=== PATIENT | female | born 1955 | race African-American/Black ===

== ENCOUNTER 2018-08-21 16:19 | Observation (INO) | payer OTHER ==
[~2018-08-21] VITALS: Ht 162.6 cm; Wt 66.7 kg
[~2018-08-21 16:19] MED LIST: HYDR-3164 PO; LISI30TA4 PO
[2018-08-21 17:01] LABS: BASO % 1 % (0-3); EOS # 0.1 x10^3/uL (0.0-0.7); EOS % 2 % (0-3); HEMATOCRIT 37.6 % (36.0-47.0); HEMOGLOBIN 12.5 g/dL (12.0-15.5); LYMPH # 2.7 x10^3/uL (1.0-4.8); LYMPH % 42 % (24-48); MEAN CORPUSCULAR HEMOGLOBIN 31 pg (25-35); MEAN CORPUSCULAR HGB CONC 33 g/dL (31-37); MEAN CORPUSCULAR VOLUME 92 fL (79-100); MONO # 0.5 x10^3/uL (0.0-1.1); MONO % 7 % (0-9); NEUT # 3.1 x10^3uL (1.8-7.7); NEUT % 48 % (31-73); PLATELET COUNT 358 x10^3/uL (140-400); RED CELL DISTRIBUTION WIDTH 13.9 % (11.5-14.5); WHITE BLOOD COUNT 6.5 x10^3/uL (4.0-11.0)
--- NOTE | 2018-08-21 17:08 | PHYS DOC ---
Past Medical History Past Medical History: Hypertension Past Surgical History: Hysterectomy Alcohol Use: None Drug Use: None Adult General Chief Complaint Chief Complaint: CHEST PAIN HPI HPI Patient is a 63 year old female presents with chest pain. She states the chest pain started about one week ago and has been constant since then. It is located in left side of her chest she describes as a crampy/sharp/stabbing pain no radiation. She says everyday she takes baby aspirin to try to relieve the pain but it has not helped her. Nothing worsens or chest pain. She is also experiencing some shortness of breath with exertion. She denies any nausea, vomiting, diaphoresis, lightheadedness, unilateral leg swelling. She reports taking 4 baby aspirins today. Review of Systems Review of Systems Constitutional: Denies fever or chills Eyes: Denies redness or eye pain HENT: Denies nasal congestion or sore throat Respiratory: Denies cough or shortness of breath Cardiovascular: Reports chest pain. Denies palpitations. GI: Denies abdominal pain, nausea, vomiting. : Denies dysuria or hematuria Musculoskeletal: Denies back pain or joint pain Integument: Denies rash or skin lesions Neurologic: Denies headache or focal weakness Complete systems were reviewed and found to be within normal limits, except as documented in this note. Current Medications Current Medications Current Medications Medications (Trade) Dose Ordered Sig/Lizette Start Time Stop Time Status Last Admin Dose Admin Fentanyl Citrate (Fentanyl 2ml Vial) 25 mcg PRN Q2HR PRN 08/21/18 17:30 Ondansetron HCl (Zofran) 4 mg PRN Q8HRS PRN 08/21/18 17:30 08/22/18 17:29 Allergies Allergies Allergies Coded Allergies Type Severity Reaction Last Updated Verified No Known Drug Allergies 03/24/16 No Physical Exam Physical Exam Constitutional: No acute distress, non-toxic appearance. HENT: Normocephalic, atraumatic, oropharynx moist, nose normal. Eyes: EOMI, conjunctiva normal. Neck: Normal range of motion, supple Cardiovascular:Heart rate regular rhythm, no murmur Lungs & Thorax: Bilateral breath sounds clear to auscultation, no rhonchi, rales or wheezes Abdomen: Bowel sounds normal, soft, no rebound rigidity or guarding. Skin: Warm, dry, no erythema, no rash. Back: No tenderness, no CVA tenderness. Extremities: No cyanosis, no clubbing, no unilateral leg swelling. Neurologic: Alert and oriented X 3, normal motor function, no focal deficits noted. Psychologic: Affect normal, mood normal. Current Patient Data Vital Signs Vital Signs Date Time Temp Pulse Resp B/P (MAP) Pulse Ox O2 Delivery O2 Flow Rate FiO2 08/21/18 17:13 72 16 147/81 (103) 100 Room Air 08/21/18 16:30 98.0 98.0 Lab Values Laboratory Tests Test 08/21/18 16:35 White Blood Count 6.5 x10^3/uL (4.0-11.0) Red Blood Count 4.10 x10^6/uL (3.50-5.40) Hemoglobin 12.5 g/dL (12.0-15.5) Hematocrit 37.6 % (36.0-47.0) Mean Corpuscular Volume 92 fL (79-100) Mean Corpuscular Hemoglobin 31 pg (25-35) Mean Corpuscular Hemoglobin Concent 33 g/dL (31-37) Red Cell Distribution Width 13.9 % (11.5-14.5) Platelet Count 358 x10^3/uL (140-400) Neutrophils (%) (Auto) 48 % (31-73) Lymphocytes (%) (Auto) 42 % (24-48) Monocytes (%) (Auto) 7 % (0-9) Eosinophils (%) (Auto) 2 % (0-3) Basophils (%) (Auto) 1 % (0-3) Neutrophils # (Auto) 3.1 x10^3uL (1.8-7.7) Lymphocytes # (Auto) 2.7 x10^3/uL (1.0-4.8) Monocytes # (Auto) 0.5 x10^3/uL (0.0-1.1) Eosinophils # (Auto) 0.1 x10^3/uL (0.0-0.7) Basophils # (Auto) 0.0 x10^3/uL (0.0-0.2) Sodium Level 142 mmol/L (136-145) Potassium Level 3.8 mmol/L (3.5-5.1) Chloride Level 105 mmol/L (98-107) Carbon Dioxide Level 30 mmol/L (21-32) Anion Gap 7 (6-14) Blood Urea Nitrogen 12 mg/dL (7-20) Creatinine 0.9 mg/dL (0.6-1.0) Estimated GFR (Cockcroft-Gault) 76.5 BUN/Creatinine Ratio 13 (6-20) Glucose Level 95 mg/dL (70-99) Calcium Level 9.2 mg/dL (8.5-10.1) Magnesium Level 1.9 mg/dL (1.8-2.4) Total Bilirubin 0.2 mg/dL (0.2-1.0) Aspartate Amino Transferase (AST) 16 U/L (15-37) Alanine Aminotransferase (ALT) 20 U/L (14-59) Alkaline Phosphatase 130 U/L (46-116) H Troponin I Quantitative < 0.017 ng/mL (0.000-0.055) Total Protein 7.7 g/dL (6.4-8.2) Albumin 3.7 g/dL (3.4-5.0) Albumin/Globulin Ratio 0.9 (1.0-1.7) L Laboratory Tests 08/21/18 16:35 Laboratory Tests 08/21/18 16:35 EKG EKG EKG at 1628 demonstrated normal sinus rhythm at a rate of 72 bpm, no ST elevation or signs of ischemia. Radiology/Procedures Radiology/Procedures [] Course & Med Decision Making Course & Med Decision Making 63-year-old female presents emergency department with chest pain for one week. It is located on the left side of her chest and does not radiate. She took 4 baby aspirin at home today. Labs imaging obtained and posted to chart. Symptomatic treatment provided with interval improvement. Patient's heart score is a 4 based on patient's risk factors and inability to completely rule out cardiac causes of her chest pain she has agreed to admission to further workup. Patient requiring admission for further evaluation and treatment. Discussed with Dr. Waller who is in agreement with admission. Discussed findings and plan with patient and family, who acknowledge understanding and agreement. [] Dragon Disclaimer Dragon Disclaimer This electronic medical record was generated, in whole or in part, using a voice recognition dictation system. Departure Departure Impression: Primary Impression: Chest pain Disposition: ADMITTED INPATIENT Admitting Physician: Other (Dr. Waller) Condition: GUARDED Referrals: NON,STAFF (PCP) Problem Qualifiers Primary Impression: Chest pain Chest pain type: unspecified Qualified Codes: R07.9 - Chest pain, unspecified NAPOLEON HODGE DO Aug 21, 2018 17:08
[2018-08-21 17:17] LABS: CALCIUM 9.2 mg/dL (8.5-10.1); CREATININE 0.9 mg/dL (0.6-1.0); GFR 76.5; POTASSIUM 3.8 mmol/L (3.5-5.1)
[2018-08-21 17:23] LABS: ALBUMIN 3.7 g/dL (3.4-5.0); ALBUMIN/GLOBULIN RATIO 0.9 (1.0-1.7); MAGNESIUM 1.9 mg/dL (1.8-2.4); TOTAL BILIRUBIN 0.2 mg/dL (0.2-1.0); TOTAL PROTEIN 7.7 g/dL (6.4-8.2)
[2018-08-21] MEDS ORDERED: fentaNYL PF VIAL 100 MCG/2 ML VIAL IV PRN (17:30)
[2018-08-21] MEDS ORDERED: ONDANSETRON PF 4 MG/2 ML VIAL. IV PRN (17:30)
[2018-08-21 19:20] VITALS: BP 188/98
--- NOTE | 2018-08-21 19:20 | NUR ---
Admit from ED via gurney. Patient A/O x 4 on arrival. Pleasant. Ambulates from [facility] [place] to bed in room. Steady gait. Voids on arrival to room. Reports chest pain for 1 week. VSS. Reviewed POC to include lab draws such as troponin and NPO after midnight for further cardiac work up. Oriented to room and call light. Verbalized understanding. Resting in bed. Call light at hand. Family at bedside.
[2018-08-21] MEDS ORDERED: LISI10TA2 PO (19:45)
[2018-08-21] MEDS ORDERED: ATOR20TA58 PO (19:46)
[2018-08-21] MEDS ORDERED: fish oil (19:46)
--- NOTE | 2018-08-21 20:21 | NUR ---
Spoke with Dr Waller at this time and obtained orders for home medications and PRNs.
[2018-08-21] MEDS ORDERED: NICOTINE 21MG PATCH. TD PRN (20:30)
[2018-08-21] MEDS ORDERED: hydrALAZINE 25 MG TABLET PO PRN (20:30)
[2018-08-21] MEDS ORDERED: ATORVASTATIN CALCIUM 20 MG TABLET PO SCH (21:00)
[2018-08-21 23:30] VITALS: BP 160/84
--- NOTE | 2018-08-22 01:30 | RAD ---
Chest PA and lateral: Reason for examination: Chest pain and hypertension. Comparison is made to previous study dated 04/05/2010. The heart size is normal. Mediastinum is unremarkable. Lung whyte are clear. No acute bony abnormalities are seen. Impression: No acute cardiopulmonary disease. Electronically signed by: Merry Simpson MD (08/22/2018 1:26 AM) [facility]
[2018-08-22 03:35] VITALS: BP 164/75
--- NOTE | 2018-08-22 05:42 | EKG ---
[facility] [address] [place] [address] Test Date: 2018-08-21 Test Time: 16:28:53 Pat Name: CATHY SHAFER Department: Room: 248 1 Gender: F Beverage Server: : 1955 Requested By: NAPOLEON HODGE Order Number: [id number] Reading MD: Mike Morejon Measurements Intervals Gilman Rate: 72 P: 62 MD: 150 QRS: 42 QRSD: 68 T: 34 QT: 354 QTc: 393 Interpretive Statements SINUS RHYTHM NO SPECIFIC ECG ABNORMALITIES RI6.01 No previous ECG available for comparison Electronically Signed On 08-26-2018 13:28:56 CDT by Mike Morejon
[2018-08-22 07:00] VITALS: BP 155/80
[2018-08-22] MEDS ORDERED: LISINOPRIL 10 MG TABLET PO SCH (09:00)
--- NOTE | 2018-08-22 09:16 | PDOC2 ---
CARDIAC CONSULT DATE OF CONSULT Date of Consult DATE: 08/22/18 TIME: 09:12 REASON FOR CONSULT Reason for Consult: Chest pain REFERRING PHYSICIAN Referring Physician: Dr. Plascencia SOURCE Source: Chart review, Patient HISTORY OF PRESENT ILLNESS HISTORY OF PRESENT ILLNESS This is a 63 yo female who presented secondary to chest pain. Patient reports she has had congestion and persistent cough for the last two weeks. Last week, developed pain on her left chest. Describes as aching, is sharp with deep breath. Applying pressure to her left chest seems to improve the pain. No associated dizziness, diaphoresis, palpitations, SOA, or nausea/vomiting. Took 4 baby ASA, which seemed to improved the pain. PAST MEDICAL HISTORY Cardiovascular: HTN, Hyperlipidemia Pulmonary: No pertinent hx CENTRAL NERVOUS SYSTEM: Other (no pertinent hx) GI: No pertinent hx Heme/Onc: Cancer (breast) Hepatobiliary: No pertinent hx Psych: Anxiety Musculoskeletal: Osteoarthritis Rheumatologic: No pertinent hx Infectious disease: No pertinent hx ENT: No pertinent hx Renal/: No pertinent hx Endocrine: Diabetes Dermatology: No pertinent hx PAST SURGICAL HISTORY Past Surgical History: Hysterectomy FAMILY HISTORY Family History: Hypertension SOCIAL HISTORY Smoke: <1 pack per day ALCOHOL: none Drugs: None Lives: with Family CURRENT MEDICATIONS CURRENT MEDICATIONS Current Medications Medications (Trade) Dose Ordered Sig/Lizette Route PRN Reason Start Time Stop Time Status Last Admin Dose Admin Fentanyl Citrate (Fentanyl 2ml Vial) 25 mcg PRN Q2HR PRN IV PAIN 08/21/18 17:30 08/21/18 17:39 Atorvastatin Calcium (Lipitor) 20 mg HS PO 08/21/18 21:00 08/21/18 20:56 ALLERGIES ALLERGIES: Coded Allergies: No Known Drug Allergies (Unverified , 03/24/16) ROS Review of System 14 point ROS conducted with pertinent positives noted above in HPI PHYSICAL EXAM General: Alert, Oriented X3, Cooperative, No acute distress HEENT: Atraumatic Lungs: Clear to auscultation, Normal air movement Heart: Regular rate, Normal S1, Normal S2, No murmurs Abdomen: Soft, No tenderness Extremities: No edema, Normal pulses Skin: No significant lesion Neuro: Normal speech, Sensation intact Psych/Mental Status: Mental status NL, Mood NL MUSCULOSKELETAL: Osteoarthritic changes both hands VITALS VITALS Vital Signs Date Time Temp Pulse Resp B/P (MAP) Pulse Ox O2 Delivery O2 Flow Rate FiO2 08/22/18 07:50 Room Air 4/18/19 07:00 98.2 77 18 155/80 (105) 99 98.2 LABS Lab: Laboratory Tests Test 08/21/18 16:35 08/21/18 20:54 08/21/18 23:20 White Blood Count 6.5 x10^3/uL (4.0-11.0) Red Blood Count 4.10 x10^6/uL (3.50-5.40) Hemoglobin 12.5 g/dL (12.0-15.5) Hematocrit 37.6 % (36.0-47.0) Mean Corpuscular Volume 92 fL (79-100) Mean Corpuscular Hemoglobin 31 pg (25-35) Mean Corpuscular Hemoglobin Concent 33 g/dL (31-37) Red Cell Distribution Width 13.9 % (11.5-14.5) Platelet Count 358 x10^3/uL (140-400) Neutrophils (%) (Auto) 48 % (31-73) Lymphocytes (%) (Auto) 42 % (24-48) Monocytes (%) (Auto) 7 % (0-9) Eosinophils (%) (Auto) 2 % (0-3) Basophils (%) (Auto) 1 % (0-3) Neutrophils # (Auto) 3.1 x10^3uL (1.8-7.7) Lymphocytes # (Auto) 2.7 x10^3/uL (1.0-4.8) Monocytes # (Auto) 0.5 x10^3/uL (0.0-1.1) Eosinophils # (Auto) 0.1 x10^3/uL (0.0-0.7) Basophils # (Auto) 0.0 x10^3/uL (0.0-0.2) Sodium Level 142 mmol/L (136-145) Potassium Level 3.8 mmol/L (3.5-5.1) Chloride Level 105 mmol/L (98-107) Carbon Dioxide Level 30 mmol/L (21-32) Anion Gap 7 (6-14) Blood Urea Nitrogen 12 mg/dL (7-20) Creatinine 0.9 mg/dL (0.6-1.0) Estimated GFR (Cockcroft-Gault) 76.5 BUN/Creatinine Ratio 13 (6-20) Glucose Level 95 mg/dL (70-99) Calcium Level 9.2 mg/dL (8.5-10.1) Magnesium Level 1.9 mg/dL (1.8-2.4) Total Bilirubin 0.2 mg/dL (0.2-1.0) Aspartate Amino Transf (AST/SGOT) 16 U/L (15-37) Alanine Aminotransferase (ALT/SGPT) 20 U/L (14-59) Alkaline Phosphatase 130 U/L (46-116) Creatine Kinase 157 U/L (26-192) Creatine Kinase MB (Mass) 2.0 ng/mL (0.0-3.6) Creatine Kinase MB Relative Index 1.3 % (0-4) Troponin I Quantitative < 0.017 ng/mL (0.000-0.055) < 0.017 ng/mL (0.000-0.055) < 0.017 ng/mL (0.000-0.055) MX-Ftf-T-Type Natriuretic Peptide 36 pg/mL (0-124) Total Protein 7.7 g/dL (6.4-8.2) Albumin 3.7 g/dL (3.4-5.0) Albumin/Globulin Ratio 0.9 (1.0-1.7) ASSESSMENT/PLAN ASSESSMENT/PLAN 1. Chest pain, atypical. AMI ruled out. Most probably pleuritic in nature as it is worsened with deep breath 2. Hypertension; mildly elevated 3. Hyperlipidemia 4. Diabetes, II Recommendations Lipid panel Echo to assess LV systolic function Resume lisinopril. Monitor to assess need for therapy titration Add Norvasc if BP remains elevated. Further recommendations pending above. SYLVESTER SAINI APRN Aug 22, 2018 09:16
[2018-08-22 09:25] LABS: CHOLESTEROL/HDL RATIO 3.6
--- NOTE | 2018-08-22 11:50 | NUR ---
SS following for discharge planning. SS reviewed pt chart. Pt is from home and is currently on room air. No discharge needs noted at this time. SS will continue to follow for pending discharge needs.
[2018-08-22] MEDS ORDERED: DEXTROSE 50% 25 GM / 50ML DISP.SYRIN. IV PRN (12:45)
--- NOTE | 2018-08-22 12:46 | PDOC1 ---
History and Physical Date of Admission Date of Admission DATE: 08/22/18 TIME: 12:44 Identification/Chief Complaint Chief Complaint Chest pain Source Source: Patient History of Present Illness History of Present Illness 63 yo female w/ PMHx HLD, HTN, DM who presented secondary to chest pain. She states the chest pain started about one week ago and has been constant since then. It is located in left side of her chest she describes as a crampy/ sharp/stabbing pain no radiation. She says everyday she takes baby aspirin to try to relieve the pain but it has not helped her. Nothing worsens or chest pain. She is also experiencing some shortness of breath with exertion. She denies any nausea, vomiting, diaphoresis, lightheadedness, unilateral leg swelling. She reports taking 4 baby aspirins today. She notes it began after she had a viral URTI last week and 3 days ago had some significant bloody nasal discharge from her left nostril and cough with some sputum. Past Medical History Cardiovascular: HTN, Hyperlipidemia Heme/Onc: Cancer (breast) Psych: Anxiety Endocrine: Diabetes Past Surgical History Past Surgical History: Hysterectomy Family History Family History: Diabetes, Hypertension Social History Smoke: No ALCOHOL: rare Drugs: None Current Problem List Problem List Problems Medical Problems: (1) Chest pain Status: Acute Current Medications Current Medications Current Medications Ondansetron HCl (Zofran) 4 mg PRN Q8HRS PRN IV NAUSEA/VOMITING; Start 08/21/18 at 17:30; Stop 08/22/18 at 17:29 Fentanyl Citrate (Fentanyl 2ml Vial) 25 mcg PRN Q2HR PRN IV PAIN Last administered on 08/21/18at 17:39; Start 08/21/18 at 17:30 Atorvastatin Calcium (Lipitor) 20 mg HS PO Last administered on 08/21/18at 20:56 ; Start 08/21/18 at 21:00 Lisinopril (Prinivil) 10 mg DAILY PO Last administered on 08/22/18at 09:38; Start 08/22/18 at 09:00 Nicotine (Nicoderm Cq 21mg) 1 patch PRN DAILY PRN TD SMOKING CESSATION; Start 08/21/18 at 20:30 Hydralazine HCl (Apresoline) 25 mg PRN TID PRN PO HYPERTENSION, SEE COMMENTS; Start 08/21/18 at 20:30 Active Scripts Active Reported Atorvastatin Calcium 20 Mg Tablet 20 Mg PO HS [fish oil ] DAILY Lisinopril 10 Mg Tablet 10 Mg PO DAILY Allergies Allergies: Coded Allergies: No Known Drug Allergies (Unverified , 03/24/16) ROS General: YES: Fatigue, Malaise; No: Chills, Night Sweats, Appetite, Other PSYCHOLOGICAL ROS: No: Anxiety, Behavioral Disorder, Concentration difficultie , Decreased libido, Depression, Disorientation, Hallucinations, Hostility, Irritablity, Memory difficulties, Mood Swings, Obsessive thoughts, Physical abuse, Sexual abuse, Sleep disturbances, Suicidal ideation, Other HEENT: YES: Heacaches, Nasal congestion, Nasal discharge, Sore Throat; No: Visual Changes, Hearing change, Oral lesions, Sinus pain, Epistaxis, Sneezing, Snoring, Tinnitus, Vertigo, Vocal changes, Other ALLERGY AND IMMUNOLOGY: No: Hives, Insect Bite Sensitivity, Itchy/Watery Eyes, Nasal Congestion, Post Nasal Drip, Seasonal Allergies, Other Hematological and Lymphatic: No: Bleeding Problems, Blood Clots, Blood Transfusions, Brusing, Night Sweats, Pallor, Swollen Lymph Nodes, Other ENDOCRINE: No: Breast Changes, Galactorrhea, Hair Pattern Changes, Hot Flashes , Malaise/lethargy, Mood Swings, Palpitations, Polydipsia/polyuria, Skin Changes , Temperature Intolerance, Unexpected Weight Changes, Other Breast: No New/Changing Breast Lumps, No Nipple changes, No Nipple discharge, No Other Respiratory: YES: Cough, Shortness of breath, SOB with excertion; No: Hemoptysis, Orthopnea, Pleuritic Pain, Sputum Changes, Stridor, Tachypnea , Wheezing, Other Cardiovascular: yes Chest Pain; No Palpitations, No Orthopnea, No Paroxysmal Noc. Dyspnea, No Edema, No Lt Headedness, No Other Gastrointestinal: No Nausea, No Vomiting, No Abdominal Pain, No Diarrhea, No Constipation, No Melena, No Hematochezia, No Other Genitourinary: No Dysuria, No Frequency, No Incontinence, No Hematuria, No Retention, No Discharge, No Urgency, No Pain, No Flank Pain, No Other, No , No , No , No , No , No , No Musculoskeletal: No Gait Disturbance, No Joint Pain, No Joint Stiffness, No Joint Swelling, No Muscle Pain, No Muscular Weakness, No Pain In:, No Swelling In:, No Other Neurological: No Behavorial Changes, No Bowel/Bladder ControlChng, No Confusion , No Dizziness, No Gait Disturbance, No Headaches, No Impaired Coord/balance, No Memory Loss, No Numbness/Tingling, No Seizures, No Speech Problems, No Tremors, No Visual Changes, No Weakness, No Other Skin: No Dry Skin, No Eczema, No Hair Changes, No Lumps, No Mole Changes, No Mottling, No Nail Changes, No Pruritus, No Rash, No Skin Lesion Changes, No Other, No Acne Physical Exam General: Alert, Oriented X3, Cooperative, No acute distress HEENT: Atraumatic, PERRLA, EOMI, Mucous membr. moist/pink, Other (Left maxillary facial pressure) Lungs: Clear to auscultation, Normal air movement Heart: S1S2, RRR, no gallops, no murmurs Extremities: No clubbing, No cyanosis, No edema, Normal pulses, No tenderness/ swelling Skin: No rashes, No breakdown, No significant lesion Neuro: Normal gait, Normal speech, Strength at 5/5 X4 ext, Normal tone, Sensation intact, Cranial nerves 3-12 NL, Reflexes 2+ Psych/Mental Status: Mental status NL, Mood NL Vitals Vitals Vital Signs Date Time Temp Pulse Resp B/P (MAP) Pulse Ox O2 Delivery O2 Flow Rate FiO2 08/22/18 09:38 77 155/80 08/22/18 07:50 Room Air 08/22/18 07:00 98.2 18 99 98.2 Labs Labs Laboratory Tests Test 08/21/18 16:35 08/21/18 20:54 08/21/18 23:20 08/22/18 08:35 White Blood Count 6.5 x10^3/uL (4.0-11.0) Red Blood Count 4.10 x10^6/uL (3.50-5.40) Hemoglobin 12.5 g/dL (12.0-15.5) Hematocrit 37.6 % (36.0-47.0) Mean Corpuscular Volume 92 fL (79-100) Mean Corpuscular Hemoglobin 31 pg (25-35) Mean Corpuscular Hemoglobin Concent 33 g/dL (31-37) Red Cell Distribution Width 13.9 % (11.5-14.5) Platelet Count 358 x10^3/uL (140-400) Neutrophils (%) (Auto) 48 % (31-73) Lymphocytes (%) (Auto) 42 % (24-48) Monocytes (%) (Auto) 7 % (0-9) Eosinophils (%) (Auto) 2 % (0-3) Basophils (%) (Auto) 1 % (0-3) Neutrophils # (Auto) 3.1 x10^3uL (1.8-7.7) Lymphocytes # (Auto) 2.7 x10^3/uL (1.0-4.8) Monocytes # (Auto) 0.5 x10^3/uL (0.0-1.1) Eosinophils # (Auto) 0.1 x10^3/uL (0.0-0.7) Basophils # (Auto) 0.0 x10^3/uL (0.0-0.2) Sodium Level 142 mmol/L (136-145) Potassium Level 3.8 mmol/L (3.5-5.1) Chloride Level 105 mmol/L (98-107) Carbon Dioxide Level 30 mmol/L (21-32) Anion Gap 7 (6-14) Blood Urea Nitrogen 12 mg/dL (7-20) Creatinine 0.9 mg/dL (0.6-1.0) Estimated GFR (Cockcroft-Gault) 76.5 BUN/Creatinine Ratio 13 (6-20) Glucose Level 95 mg/dL (70-99) Calcium Level 9.2 mg/dL (8.5-10.1) Magnesium Level 1.9 mg/dL (1.8-2.4) Total Bilirubin 0.2 mg/dL (0.2-1.0) Aspartate Amino Transf (AST/SGOT) 16 U/L (15-37) Alanine Aminotransferase (ALT/SGPT) 20 U/L (14-59) Alkaline Phosphatase 130 U/L (46-116) Creatine Kinase 157 U/L (26-192) Creatine Kinase MB (Mass) 2.0 ng/mL (0.0-3.6) Creatine Kinase MB Relative Index 1.3 % (0-4) Troponin I Quantitative < 0.017 ng/mL (0.000-0.055) < 0.017 ng/mL (0.000-0.055) < 0.017 ng/mL (0.000-0.055) NE-Yyf-I-Type Natriuretic Peptide 36 pg/mL (0-124) Total Protein 7.7 g/dL (6.4-8.2) Albumin 3.7 g/dL (3.4-5.0) Albumin/Globulin Ratio 0.9 (1.0-1.7) Triglycerides Level 73 mg/dL (0-150) Cholesterol Level 159 mg/dL (0-200) LDL Cholesterol, Calculated 100 mg/dL (0-100) VLDL Cholesterol, Calculated 15 mg/dL (0-40) Non-HDL Cholesterol Calculated 115 mg/dL (0-129) HDL Cholesterol 44 mg/dL (40-60) Cholesterol/HDL Ratio 3.6 Laboratory Tests Test 08/21/18 16:35 08/21/18 20:54 08/21/18 23:20 08/22/18 08:35 White Blood Count 6.5 x10^3/uL (4.0-11.0) Red Blood Count 4.10 x10^6/uL (3.50-5.40) Hemoglobin 12.5 g/dL (12.0-15.5) Hematocrit 37.6 % (36.0-47.0) Mean Corpuscular Volume 92 fL (79-100) Mean Corpuscular Hemoglobin 31 pg (25-35) Mean Corpuscular Hemoglobin Concent 33 g/dL (31-37) Red Cell Distribution Width 13.9 % (11.5-14.5) Platelet Count 358 x10^3/uL (140-400) Neutrophils (%) (Auto) 48 % (31-73) Lymphocytes (%) (Auto) 42 % (24-48) Monocytes (%) (Auto) 7 % (0-9) Eosinophils (%) (Auto) 2 % (0-3) Basophils (%) (Auto) 1 % (0-3) Neutrophils # (Auto) 3.1 x10^3uL (1.8-7.7) Lymphocytes # (Auto) 2.7 x10^3/uL (1.0-4.8) Monocytes # (Auto) 0.5 x10^3/uL (0.0-1.1) Eosinophils # (Auto) 0.1 x10^3/uL (0.0-0.7) Basophils # (Auto) 0.0 x10^3/uL (0.0-0.2) Sodium Level 142 mmol/L (136-145) Potassium Level 3.8 mmol/L (3.5-5.1) Chloride Level 105 mmol/L (98-107) Carbon Dioxide Level 30 mmol/L (21-32) Anion Gap 7 (6-14) Blood Urea Nitrogen 12 mg/dL (7-20) Creatinine 0.9 mg/dL (0.6-1.0) Estimated GFR (Cockcroft-Gault) 76.5 BUN/Creatinine Ratio 13 (6-20) Glucose Level 95 mg/dL (70-99) Calcium Level 9.2 mg/dL (8.5-10.1) Magnesium Level 1.9 mg/dL (1.8-2.4) Total Bilirubin 0.2 mg/dL (0.2-1.0) Aspartate Amino Transf (AST/SGOT) 16 U/L (15-37) Alanine Aminotransferase (ALT/SGPT) 20 U/L (14-59) Alkaline Phosphatase 130 U/L (46-116) Creatine Kinase 157 U/L (26-192) Creatine Kinase MB (Mass) 2.0 ng/mL (0.0-3.6) Creatine Kinase MB Relative Index 1.3 % (0-4) Troponin I Quantitative < 0.017 ng/mL (0.000-0.055) < 0.017 ng/mL (0.000-0.055) < 0.017 ng/mL (0.000-0.055) UU-Nbv-F-Type Natriuretic Peptide 36 pg/mL (0-124) Total Protein 7.7 g/dL (6.4-8.2) Albumin 3.7 g/dL (3.4-5.0) Albumin/Globulin Ratio 0.9 (1.0-1.7) Triglycerides Level 73 mg/dL (0-150) Cholesterol Level 159 mg/dL (0-200) LDL Cholesterol, Calculated 100 mg/dL (0-100) VLDL Cholesterol, Calculated 15 mg/dL (0-40) Non-HDL Cholesterol Calculated 115 mg/dL (0-129) HDL Cholesterol 44 mg/dL (40-60) Cholesterol/HDL Ratio 3.6 VTE Prophylaxis Ordered VTE Prophylaxis Devices: Yes VTE Pharmacological Prophylaxi: No Assessment/Plan Assessment/Plan A/P: Chest pain, atypical. AMI ruled out with negative troponins and EKG - echo The left ventricular systolic function is normal. The Ejection Fraction is 60%. There is normal LV segmental wall motion. Doppler and Color-flow revealed trace mitral regurgitation. There is no evidence of significant pericardial effusion. Hypertension - needs a bit better control, will start low dose amlodipine in addition to lisinopril-hctz Hyperlipidemia - reasonably controlled lipids Diabetes - oral control Right maxillary sinusitis - doxycycline Bronchitis - doxycycline FEN - Cardiac diet PPX - SCDs FULL CODE Observation for chest pain, ruled out. Greater than 105 minutes spent on same day admit and d/c KIRILL CONTRERAS MD Aug 22, 2018 12:46
[2018-08-22] MEDS ORDERED: guaiFENesin ORAL 200 MG/10 ML LIQUID. PO PRN (13:15)
[2018-08-22] MEDS ORDERED: SODIUM CHLORIDE 0.65% NASAL SPRAY 45ML BOTTLE. NS PRN (13:15)
[2018-08-22] MEDS ORDERED: IPRATRPIUM/ALBUTEROL 0.5/2.5MG 3 ML NEBU. NEB ONE (13:15)
--- NOTE | 2018-08-22 13:28 | CARD ---
MR#: [id number] Date of Study: 08/22/2018 Ordering Physician: SYLVESTER SAINI, Referring Physician: Raman RUEDA: Concha Alston Michaelnaman APPROVED REPORT EXAM: Two-dimensional and M-mode echocardiogram with Doppler and color Doppler. Other Information Quality : AverageHR: 66bpm INDICATION Chest Pain RISK FACTORS Hypertension Hyperlipidemia Diabetes Smoking 2D DIMENSIONS RVDd1.9 (2.9-3.5cm)Left Atrium(2D)3.1 (1.6-4.0cm) IVSd0.9 (0.7-1.1cm)Aortic Root(2D)2.3 (2.0-3.7cm) LVDd4.4 (3.9-5.9cm)LVOT Diameter1.9 (1.8-2.4cm) PWd0.9 (0.7-1.1cm)LVDs2.1 (2.5-4.0cm) FS (%) 51.3 %SV70.7 ml LVEF(%)82.7 (>50%) Aortic Valve AoV Peak Casey.147.0cm/sAoV VTI35.0cm AO Peak GR.8.6mmHgLVOT Peak Casey.105.1cm/s LVOT VTI 25.33cmAO Mean GR.5mmHg NETO (VMAX)1.06in4OUO (VTI)2.05cm2 Mitral Valve MV E Xlitzqxf82.3cm/sMV DECEL THBN518bs MV A Rnzbbtrq42.7cm/sMV HPP31xw E/A Ratio1.2MVA (PHT)3.81cm2 TDI E/Lateral E'10.3E/Medial E'11.0 Pulmonary Valve PV Peak Xvepofsb66.4cm/sPV Peak Grad.3mmHg Tricuspid Valve TR P. Isieqfwa593fy/sRAP QEFVYUVF5goNt TR Peak Gr.19taXdJHGE13tcMo Pulmonary Vein S1 Ovqzxyav04.1cm/sD2 Bfjusvuw57.9cm/s PVa zpswawqk163jpsb LEFT VENTRICLE The left ventricle is normal size. There is normal left ventricular wall thickness. The left ventricu lar systolic function is normal. The Ejection Fraction is 60%. There is normal LV segmental wall tex on. Transmitral Doppler flow pattern is Grade II-pseudonormal filling dynamics. RIGHT VENTRICLE The right ventricle is normal size. There is normal right ventricular wall thickness. The right ventr icular systolic function is normal. ATRIA The left atrium size is normal. The right atrium size is normal. The interatrial septum is intact wit h no evidence for an atrial septal defect or patent foramen ovale as noted on 2-D or Doppler imaging. AORTIC VALVE The aortic valve is normal in structure and function. Doppler and Color Flow revealed no significant aortic regurgitation. There is no significant aortic valvular stenosis. MITRAL VALVE The mitral valve is normal in structure and function. There is no evidence of mitral valve prolapse. There is no mitral valve stenosis. Doppler and Color-flow revealed trace mitral regurgitation. TRICUSPID VALVE The tricuspid valve is normal in structure and function. Doppler and Color Flow revealed no tricuspid valve regurgitation noted. There is no tricuspid valve stenosis. PULMONIC VALVE The pulmonic valve is not well visualized. Doppler and Color Flow revealed no pulmonic valvular regur gitation. GREAT VESSELS The aortic root is normal in size. The IVC is normal in size and collapses >50% with inspiration. PERICARDIAL EFFUSION There is no evidence of significant pericardial effusion. Critical Notification Critical Value: No <Conclusion> The left ventricular systolic function is normal. The Ejection Fraction is 60%. There is normal LV segmental wall motion. Doppler and Color-flow revealed trace mitral regurgitation. There is no evidence of significant pericardial effusion. Signed by : Mike Morejon, Electronically Approved : 08/22/2018 13:28:06
[2018-08-22] MEDS ORDERED: DOXYCYCLINE HYCLATE 100 MG TABLET PO ONE (13:45)
[2018-08-22] MEDS ORDERED: amLODIPine BESYLATE 5 MG TABLET PO SCH (13:45)
[2018-08-22] MEDS ORDERED: hydroCHLOROthiazide 12.5 MG CAPSULE PO ONE (13:45)
[2018-08-22] MEDS ORDERED: DOXY100C14 PO (13:49)
[2018-08-22] MEDS ORDERED: AMLO5TAB10 PO (13:49)
--- NOTE | 2018-08-22 13:53 | PDOC3 ---
Discharge Summary Visit Information Date of Admission: Aug 21, 2018 Date of Discharge: Aug 22, 2018 Admitting Diagnosis: Dyspnea Final Diagnosis Problems Medical Problems: (1) Chest pain Status: Acute Brief Hospital Course Allergies Allergies Coded Allergies Type Severity Reaction Last Updated Verified No Known Drug Allergies 03/24/16 No Vital Signs Vital Signs Date Time Temp Pulse Resp B/P (MAP) Pulse Ox O2 Delivery O2 Flow Rate FiO2 08/22/18 09:38 77 155/80 08/22/18 07:50 Room Air 08/22/18 07:00 98.2 18 99 98.2 Lab Results Laboratory Tests Test 08/21/18 16:35 08/21/18 20:54 08/21/18 23:20 08/22/18 08:35 White Blood Count 6.5 x10^3/uL (4.0-11.0) Red Blood Count 4.10 x10^6/uL (3.50-5.40) Hemoglobin 12.5 g/dL (12.0-15.5) Hematocrit 37.6 % (36.0-47.0) Mean Corpuscular Volume 92 fL (79-100) Mean Corpuscular Hemoglobin 31 pg (25-35) Mean Corpuscular Hemoglobin Concent 33 g/dL (31-37) Red Cell Distribution Width 13.9 % (11.5-14.5) Platelet Count 358 x10^3/uL (140-400) Neutrophils (%) (Auto) 48 % (31-73) Lymphocytes (%) (Auto) 42 % (24-48) Monocytes (%) (Auto) 7 % (0-9) Eosinophils (%) (Auto) 2 % (0-3) Basophils (%) (Auto) 1 % (0-3) Neutrophils # (Auto) 3.1 x10^3uL (1.8-7.7) Lymphocytes # (Auto) 2.7 x10^3/uL (1.0-4.8) Monocytes # (Auto) 0.5 x10^3/uL (0.0-1.1) Eosinophils # (Auto) 0.1 x10^3/uL (0.0-0.7) Basophils # (Auto) 0.0 x10^3/uL (0.0-0.2) Sodium Level 142 mmol/L (136-145) Potassium Level 3.8 mmol/L (3.5-5.1) Chloride Level 105 mmol/L (98-107) Carbon Dioxide Level 30 mmol/L (21-32) Anion Gap 7 (6-14) Blood Urea Nitrogen 12 mg/dL (7-20) Creatinine 0.9 mg/dL (0.6-1.0) Estimated GFR (Cockcroft-Gault) 76.5 BUN/Creatinine Ratio 13 (6-20) Glucose Level 95 mg/dL (70-99) Calcium Level 9.2 mg/dL (8.5-10.1) Magnesium Level 1.9 mg/dL (1.8-2.4) Total Bilirubin 0.2 mg/dL (0.2-1.0) Aspartate Amino Transf (AST/SGOT) 16 U/L (15-37) Alanine Aminotransferase (ALT/SGPT) 20 U/L (14-59) Alkaline Phosphatase 130 U/L (46-116) Creatine Kinase 157 U/L (26-192) Creatine Kinase MB (Mass) 2.0 ng/mL (0.0-3.6) Creatine Kinase MB Relative Index 1.3 % (0-4) Troponin I Quantitative < 0.017 ng/mL (0.000-0.055) < 0.017 ng/mL (0.000-0.055) < 0.017 ng/mL (0.000-0.055) XF-Uoa-W-Type Natriuretic Peptide 36 pg/mL (0-124) Total Protein 7.7 g/dL (6.4-8.2) Albumin 3.7 g/dL (3.4-5.0) Albumin/Globulin Ratio 0.9 (1.0-1.7) Triglycerides Level 73 mg/dL (0-150) Cholesterol Level 159 mg/dL (0-200) LDL Cholesterol, Calculated 100 mg/dL (0-100) VLDL Cholesterol, Calculated 15 mg/dL (0-40) Non-HDL Cholesterol Calculated 115 mg/dL (0-129) HDL Cholesterol 44 mg/dL (40-60) Cholesterol/HDL Ratio 3.6 Laboratory Tests Test 08/21/18 16:35 08/21/18 20:54 08/21/18 23:20 08/22/18 08:35 White Blood Count 6.5 x10^3/uL (4.0-11.0) Red Blood Count 4.10 x10^6/uL (3.50-5.40) Hemoglobin 12.5 g/dL (12.0-15.5) Hematocrit 37.6 % (36.0-47.0) Mean Corpuscular Volume 92 fL (79-100) Mean Corpuscular Hemoglobin 31 pg (25-35) Mean Corpuscular Hemoglobin Concent 33 g/dL (31-37) Red Cell Distribution Width 13.9 % (11.5-14.5) Platelet Count 358 x10^3/uL (140-400) Neutrophils (%) (Auto) 48 % (31-73) Lymphocytes (%) (Auto) 42 % (24-48) Monocytes (%) (Auto) 7 % (0-9) Eosinophils (%) (Auto) 2 % (0-3) Basophils (%) (Auto) 1 % (0-3) Neutrophils # (Auto) 3.1 x10^3uL (1.8-7.7) Lymphocytes # (Auto) 2.7 x10^3/uL (1.0-4.8) Monocytes # (Auto) 0.5 x10^3/uL (0.0-1.1) Eosinophils # (Auto) 0.1 x10^3/uL (0.0-0.7) Basophils # (Auto) 0.0 x10^3/uL (0.0-0.2) Sodium Level 142 mmol/L (136-145) Potassium Level 3.8 mmol/L (3.5-5.1) Chloride Level 105 mmol/L (98-107) Carbon Dioxide Level 30 mmol/L (21-32) Anion Gap 7 (6-14) Blood Urea Nitrogen 12 mg/dL (7-20) Creatinine 0.9 mg/dL (0.6-1.0) Estimated GFR (Cockcroft-Gault) 76.5 BUN/Creatinine Ratio 13 (6-20) Glucose Level 95 mg/dL (70-99) Calcium Level 9.2 mg/dL (8.5-10.1) Magnesium Level 1.9 mg/dL (1.8-2.4) Total Bilirubin 0.2 mg/dL (0.2-1.0) Aspartate Amino Transf (AST/SGOT) 16 U/L (15-37) Alanine Aminotransferase (ALT/SGPT) 20 U/L (14-59) Alkaline Phosphatase 130 U/L (46-116) Creatine Kinase 157 U/L (26-192) Creatine Kinase MB (Mass) 2.0 ng/mL (0.0-3.6) Creatine Kinase MB Relative Index 1.3 % (0-4) Troponin I Quantitative < 0.017 ng/mL (0.000-0.055) < 0.017 ng/mL (0.000-0.055) < 0.017 ng/mL (0.000-0.055) NV-Hzd-G-Type Natriuretic Peptide 36 pg/mL (0-124) Total Protein 7.7 g/dL (6.4-8.2) Albumin 3.7 g/dL (3.4-5.0) Albumin/Globulin Ratio 0.9 (1.0-1.7) Triglycerides Level 73 mg/dL (0-150) Cholesterol Level 159 mg/dL (0-200) LDL Cholesterol, Calculated 100 mg/dL (0-100) VLDL Cholesterol, Calculated 15 mg/dL (0-40) Non-HDL Cholesterol Calculated 115 mg/dL (0-129) HDL Cholesterol 44 mg/dL (40-60) Cholesterol/HDL Ratio 3.6 Brief Hospital Course 63 yo female w/ PMHx HLD, HTN, DM who presented secondary to chest pain. She states the chest pain started about one week ago and has been constant since then. It is located in left side of her chest she describes as a crampy/ sharp/stabbing pain no radiation. She says everyday she takes baby aspirin to try to relieve the pain but it has not helped her. Nothing worsens or chest pain. She is also experiencing some shortness of breath with exertion. She denies any nausea, vomiting, diaphoresis, lightheadedness, unilateral leg swelling. She reports taking 4 baby aspirins today. She notes it began after she had a viral URTI last week and 3 days ago had some significant bloody nasal discharge from her left nostril and cough with some sputum. A/P: Chest pain, atypical. AMI ruled out with negative troponins and EKG - echo The left ventricular systolic function is normal. The Ejection Fraction is 60%. There is normal LV segmental wall motion. Doppler and Color-flow revealed trace mitral regurgitation. There is no evidence of significant pericardial effusion. Hypertension - needs a bit better control, will start low dose amlodipine in addition to lisinopril-hctz Hyperlipidemia - reasonably controlled lipids Diabetes - oral control Right maxillary sinusitis - doxycycline Bronchitis - doxycycline Observation for chest pain, ruled out. Greater than 105 minutes spent on same day admit and d/c Discharge Information Condition at Discharge: Improved Follow Up: Weeks (2) Disposition/Orders: D/C to Home Scheduled Amlodipine Besylate (Amlodipine Besylate) 5 Mg Tablet, 2.5 MG PO DAILY for HTN for 30 Days, #15 Ref 2 Prescribed by: KIRILL CONTRERAS MD on 08/22/18 1349 Atorvastatin Calcium (Atorvastatin Calcium) 20 Mg Tablet, 20 MG PO HS for FOR CHOLESTEROL, #30 Ref 0 (Reported) Entered as Reported by: GRACE BINGHAM on 08/21/181945 Last Action: Continued on 08/21/182021 by GRACE BINGHAM Doxycycline Monohydrate (Doxycycline Monohydrate) 100 Mg Capsule, 1 CAP PO BID for Sinusitis/Bronchitis for 7 Days, #14 Prescribed by: KIRILL CONTRERAS MD on 08/22/18 1349 Lisinopril (Lisinopril) 10 Mg Tablet, 10 MG PO DAILY for FOR HYPERTENSION, #30 Ref 0 (Reported) Entered as Reported by: GRACE BINGHAM on 08/21/181944 Last Action: Continued on 08/21/182021 by GRACE BINGHAM [fish oil ] , DAILY, (Reported) Entered as Reported by: GRACE BINGHAM on 08/21/181945 Last Action: New Order on 08/21/181945 by KIRILL JASON MD Aug 22, 2018 13:53
[2018-08-22 14:15] VITALS: BP 149/77
--- NOTE | 2018-08-22 15:47 | NUR ---
Discharge Note: [facility] Discharge instructions and discharge home medications reviewed with Patient and a copy given. All questions have been answered and understanding verbalized. The following instructions and handouts were given: Diet, chest pain, follow up Discontinued lines and drains: IV removed, no lines present. Patient discharged to home. left via wheelchair to her vehicle.
[2018-08-22] MEDS ORDERED: INSULIN LISPRO 300 UNITS/3 ML INSULN.PEN. SQ SCH (17:00)
== END 2018-08-22 15:40 | disposition home or self-care (01) ==
LOC: ER 16:19 → 2 SOUTH 17:24
PROVIDERS: ADMIT Internal Medicine; ATTEND Internal Medicine
DX: R07.89 Other chest pain (principal); E78.5 Hyperlipidemia, unspecified; E11.9 Type 2 diabetes mellitus without complications; J40 Bronchitis, not specified as acute or chronic; J32.0 Chronic maxillary sinusitis; I10 Essential (primary) hypertension; J06.9 Acute upper respiratory infection, unspecified; R06.02 Shortness of breath; R05 Cough; F17.210 Nicotine dependence, cigarettes, uncomplicated; Z82.49 Family history of ischemic heart disease and other diseases of the circulatory system; Z83.3 Family history of diabetes mellitus; Z85.3 Personal history of malignant neoplasm of breast; Z90.710 Acquired absence of both cervix and uterus; F41.9 Anxiety disorder, unspecified
CPT/HCPCS: 36415; 71046; 80053; 80061; 82553; 83735; 83880; 84484; 85025; 93005; 93306; 96374; 99284; G0378; J3010; G0379; J1815

== ENCOUNTER → 2020-06-21 | Outpatient (CLI) | payer OTHER ==
[~2020-06-21] MED LIST changes: +AMLO-186 PO; +ATOR20TA58 PO; +BUPIVACAINE MPF 0.5% 10 ML VIAL. IJ ONE; +DOXY100C14 PO; +IOHEXOL 300 MG/ML 50 ML VIAL. IJ ONE; +LISI10TA16 PO; +fish oil; +methylPREDNISolone ACETATE 80 MG/ML VIAL. INT ART ONE
--- NOTE | 2020-06-21 16:02 | RAD ---
EXAM: Fluoroscopically guided right hip injection for local anesthetic administration. HISTORY: 65-year-old woman with right hip pain for approximately 1 to 2 months.. TECHNIQUE: The risks and benefits of the procedure were discussed with the patient and written and ve rbal consent were obtained. A time out procedure was performed. Fluoroscopic imaging of the right hip was performed. The overlying skin was sterilely prepped and inf iltrated with 1% lidocaine for local anesthesia. A 22-gauge spinal needle was then advanced into the joint space under fluoroscopic guidance. Intra-articular positioning positioning was confirmed with a small injection of iodinated contrast. Thereafter, a cocktail containing 5 mL of 0.5 percent bupivac artie admixed with 1 mL of 80 mg Depo-Medrol was injected under fluoroscopic control into the right hi p joint. Instrumentation was withdrawn and a sterile dressing placed. There were no immediate complic ations. Fluoroscopy time 0.2 minutes. 3 images were obtained. She tolerated the procedure without sig nificant discomfort. Some discomfort was noted with full distention of the joint capsule. IMPRESSION: Successful fluoroscopically guided right hip injection for local anesthetic delivery. Electronically signed by: Elaine Salmeron MD (06/21/2020 4:00 PM) [id number]
== END | disposition home or self-care (01) ==
LOC: RAD 13:34
PROVIDERS: ATTEND Orthopaedic Surgery
DX: M16.11 Unilateral primary osteoarthritis, right hip (principal); E78.00 Pure hypercholesterolemia, unspecified; I10 Essential (primary) hypertension; E11.9 Type 2 diabetes mellitus without complications; E66.9 Obesity, unspecified; F41.9 Anxiety disorder, unspecified; Z90.710 Acquired absence of both cervix and uterus; Z98.890 Other specified postprocedural states; Z79.899 Other long term (current) drug therapy; Z87.891 Personal history of nicotine dependence
CPT/HCPCS: 20610; 77002

== ENCOUNTER → 2021-04-21 | Outpatient (CLI) | payer OTHER ==
[~2021-04-21] MED LIST changes: +ASCO500C PO; -BUPIVACAINE MPF 0.5% 10 ML VIAL. IJ ONE; +CHOL5000 PO; +DOXY-181 PO; -DOXY100C14 PO; -IOHEXOL 300 MG/ML 50 ML VIAL. IJ ONE; -methylPREDNISolone ACETATE 80 MG/ML VIAL. INT ART ONE
--- NOTE | 2021-04-21 15:42 | PDOC1 ---
INITIAL PAIN CONSULT DATE OF SERVICE: DOS: DATE: 04/21/21 TIME: 15:32 CHIEF COMPLAINT: Chief Complaint: Low back and right lower extremity pain HISTORY OF PRESENT ILLNESS: 65-year-old female presents history of pain low back right lower extremity for about 3 months not the result of any specific injury or accident that she is aware but is getting worse with time radiating pain across the low back into the right lower extremity posterior gluteus posterior lateral thigh lateral anterior thigh anteromedial thigh medial lower leg and calf and some of the posterior calf and into the foot and great toe on the right side patient reports that sharp and stabbing throbbing shooting in the back and radiating into the leg aching and burning worse with walking standing changing positions patient reports better with sitting or laying down does not awaken her from sleep at night does not affect her bowel bladder control but does affect her ability to walk although she does not use any assistive devices. Patient is had chiropractic treatment doing exercise on her own and has had physical therapies in the past still doing the exercises patient reports he is also had epidural injections many years ago at an outside facility which were quite helpful as well patient reports her disability rating 0-10 10 being worst is an 8 with family who responsibilities recreation social activity 9 with occupation section behavior 6 with self-care and 0 with life support activities. Patient did have plain films of the lumbar spine showing lower lumbar spondylosis L4 and L5-S1 with mild to moderate disc space narrowing at L4-5 and L5-S1. Patient reports no loss of motor function with significant fatigability the right only with walking standing. Patient has been taking urbd-tdu-jcljndh Tylenol and Motrin, as well as a muscle relaxer she is unsure the name but neither of which helped decrease the pain significantly at this point. She reports no loss of motor function no bowel or bladder incontinence but significant fatigability of the right leg with walking. PAST MEDICAL HISTORY: PMH: Arthritis, hypertension, cigarette smoking, cervical cancer PREVIOUS SURGERIES: Past Surgical Hx: Hysterectomy, exploratory laparotomy, ocular surgery CURRENT MEDICATIONS: Current Meds: Active Scripts Medications Dose Route/Sig Max Daily Dose Days Date Category Dose Instructions Vitamin C (Ascorbic Acid) 500 Mg Capsule.er 1 Cap PO DAILY 30 04/21/21 Reported Vitamin D3 (Vitamin D) 125 Mcg Capsule 500 Mcg PO DAILY 04/21/21 Reported 5,000 UNITS = 125 MCG Lisinopril 10 Mg Tablet 10 Mg PO DAILY 08/21/18 Reported ALLERGIES; Allergies: Coded Allergies: No Known Drug Allergies (Unverified , 03/24/16) FAMILY HISTORY: Family Hx: No major medical problems or conditions that she is aware of SOCIAL HISTORY: Social Hx: Patient does not drink alcohol except for very rarely smokes cigarettes less than half a pack a day and has for 45 years continues smoke does not use any illegal illicit recreational drug is single lives locally in [facility] works 2 jobs where she is mostly on her feet for her entire working shift. REVIEW OF SYSTEMS: ROS: Positive for those items mentioned in history of present illness, all systems are reviewed, otherwise negative ,and are complete full and well-documented on patient's chart. PHYSICAL EXAM: VS: Blood pressure is 155/92 pulse 67 respirations 18 temperature 98.6 F height is 5 foot 3 inches weight is 145 pounds PE: PHYSICAL EXAMINATION: GENERAL: The patient is awake, alert, oriented, appropriate, very pleasant in demeanor HEENT: Shows normocephalic, atraumatic. Extraocular movements are intact and symmetrical. Oral cavity: Mucous membranes moist and pink. Dentition is intact. NECK: Shows anterior throat supple without palpable lymphadenopathy noted. Swallow reflex symmetrical. CHEST: Shows normal on inspection. Breath sounds are clear bilaterally, coarse but no rales or rhonchi. HEART: Shows S1, S2 clear. No murmurs auscultated. ABDOMEN: Soft, nontender, nondistended. No palpable organomegaly is noted. BACK: Shows spine grossly in the midline. Normal-appearing cervical lordotic curvature. There is mildly increased thoracic kyphosis, some flattening of the lumbar lordotic curvature. Lumbar paraspinous muscles show symmetrical on i nspection, on palpation shows some moderate tenderness diffusely throughout the upper, middle and lower distribution of the paraspinous muscles bilaterally and also into the lower thoracic paraspinous musculature, firm and tender, but without specific trigger points, without radiation of pain. The patient has good rotational motion of the lumbar spine, both laterally as well as extension and flexion without significant difficulty. No tenderness over the spinous processes, sacrum or sacroiliac regions. EXTREMITIES: Lower extremities show deep tendon reflexes 1+ in the right patellar and tendo calcaneus tendons, and 2+ on the left. Motor exam is 4 on a scale of 5 with right dorsiflexion, extension, quadriceps and hamstring flexion and 5/5 on the left. Peripheral pulses are 1+ posterior tibial. No peripheral edema is noted bilaterally. Lower extremities are warm and dry to touch, equal in color and appearance. Straight leg raise noted to be positive on the right about 35 degrees, left side is negative. The patient is able to stand, stand on her toes with has significant difficulty with standing all of her weight on her right leg, walks with a slight favoring gait does appear to favor the right lower extremity although not using any assistive devices to ambulate such as canes or walkers. SKIN: Shows warm and dry, good turgor. No edema. No sores, rashes or bruising throughout. IMPRESSION: Impression: 65-year-old female with 3-month history increasing pain low back right lower extremity radicular fashion following L4-5 dermatomal distribution. Plain films as noted Arthritis Hypertension Cigarette smoking Plan: Options were discussed with patient including conservative managements continue physical therapy interventional techniques. Patient elects interventional techniques. We discussed a lumbar epidural steroid injections description as well as anatomical models described procedure. Patient will wait for preauthorization with her return provider once obtained we will have her return for a translaminar approach L4-5 level lumbar epidural steroid injection with fluoroscopic guidance. In meantime, patient will continue with stretching strength exercises and oral analgesics and anti-inflammatories as currently. RANJANA FUENTES MD Apr 21, 2021 15:42
== END | disposition home or self-care (01) ==
LOC: PNCL 09:30
PROVIDERS: ATTEND Anesthesiology
DX: M54.50 Low back pain, unspecified (principal); M79.604 Pain in right leg; M19.90 Unspecified osteoarthritis, unspecified site; I10 Essential (primary) hypertension; E78.00 Pure hypercholesterolemia, unspecified; E11.9 Type 2 diabetes mellitus without complications; E66.9 Obesity, unspecified; F41.9 Anxiety disorder, unspecified; Z87.891 Personal history of nicotine dependence; Z79.899 Other long term (current) drug therapy; Z90.710 Acquired absence of both cervix and uterus; Z98.890 Other specified postprocedural states
CPT/HCPCS: 99205; G0463

== ENCOUNTER → 2021-05-05 | Outpatient (CLI) | payer OTHER ==
[~2021-05-05] MED LIST changes: +BUPIVACAINE MPF 0.25% 10 ML VIAL. ONE; +IOHEXOL 180 MG/ML 10 ML VIAL. ONE; +methylPREDNISolone ACETATE 80 MG/ML VIAL. ONE
--- NOTE | 2021-05-05 13:49 | PDOC ---
Progress Note - Pain Clinic Date of Service: DOS: DATE: 05/05/21 TIME: 13:45 Diagnosis: Dx: Lumbar radiculopathy with lumbar degenerative disease Hypertension History or Present Illness: HPI: 66-year-old female returns with complaints of low back and right lower extremity pain posterior gluteus posterior lateral thigh lateral anterior thigh anteromedial thigh medial lower leg and calf patient reports is aching shooting burning cramping stabbing radiating patient rates as a 7 on scale 10 is worst average and a 6 at its least is a 7 today. Patient reports increased pain with weather change has been waking her from sleep more often than not over the past week about every 5 hours patient reports no loss of motor function with significant fatigability of the right lower extremity with walking and standing. Patient continues to do stretching strength exercises on her own as well as taking [id number] analgesics which are helpful but only to a mild extent. Patient reports no bowel or bladder incontinence or loss of motor function. Patient blood pressure was elevated a diastolic of 98 rechecked at 99 we discussed this with her and will recommend follow-up with her primary care physician and did discuss the possibly increase pain could cause elevated blood pressure but this still needs to be evaluated with her primary care physician she is taking lisinopril currently. Physical Exam: VS: Blood pressure is 130/90 recheck 146/99 pulse 87 respirations 18 temperature 98.4 F weight is 144 pounds PE: PHYSICAL EXAMINATION: GENERAL: The patient is awake, alert, oriented, appropriate, very pleasant in de meanor HEENT: Shows normocephalic, atraumatic. Extraocular movements are intact and symmetrical. Oral cavity: Mucous membranes moist and pink. Dentition is intact. NECK: Shows anterior throat supple without palpable lymphadenopathy noted. Swallow reflex symmetrical. CHEST: Shows normal on inspection. Breath sounds are clear bilaterally. HEART: Shows S1, S2 clear. No murmurs auscultated. ABDOMEN: Soft, nontender, nondistended. No palpable organomegaly is noted. BACK: Shows spine grossly in the midline. Normal-appearing cervical lordotic curvature. There is increased thoracic kyphosis, some minor flattening of the lumbar lordotic curvature. Lumbar paraspinous muscles show symmetrical on inspection, on palpation shows some moderate tenderness diffusely throughout the upper, middle and lower distribution of the paraspinous muscles without specific trigger points, without radiation of pain. The patient has good rotational motion of the lumbar spine, both laterally as well as extension and flexion without significant difficulty. EXTREMITIES: Lower extremities show deep tendon reflexes 1+ in the patellar and tendo calcaneus tendons. Motor exam is 4 on a scale of 5 with right dorsiflexion, extension, quadriceps and hamstring flexion and 5/5 on the left. Peripheral pulses are 1+ posterior tibial. No peripheral edema is noted bilaterally. Lower extremities are warm and dry to touch, equal in color and appearance. SKIN: Shows warm and dry, good turgor. No edema. No sores, rashes or bruising throughout. Procedure: Procedure: Options were discussed with patient. Patient chart was reviewed as her current medication regimen updated current review of systems updated today as well. We will proceed with a right L4-5 transforaminal steroid injection today with fluoroscopic guidance. Risks were discussed including but not limited to: Bleeding, infection, possibility of epidural hematoma and subsequent neurological compromise, dural puncture, headaches, spinal cord and/or nerve damage, potential injection of vertebral artery at that level and permanent ischemic damage, side effects of steroid medication, and poor results regarding pain control. Patient understands and wished to proceed. Patient will return to clinic in approximately 2 weeks for follow-up, was counseled as to return appointment, activity level, and side effect to be aware of. Medication Injected: Med Injected: Under sterile prep and drape patient was placed in prone position using C-arm fluoroscopic guidance to identify the L4-5 distribution oblique and slightly cephalad angled C arm. The right L4-5 target was identified and using lidocaine for anesthetizing the skin 22-gauge Kareem pencil point needle was then used to enter the skin and into the subcutaneous tissues using direct C-arm fluoroscopic guidance to guide the needle into the transforaminal aspect of the right L4-5 vertebrae this was confirmed with lateral views showing the needle tip in the superior aspect of the paravertebral region. Aspiration was noted to be negative, -1.5 cc of contrast was then injected with good spread both medially into the epidural space as well as laterally along the nerve root without uptake and without distribution and uptake on digital subtraction. At this time, a solution containing 2 cc of 0.25% bupivacaine and 80 mg of Depo- Medrol was then injected. Needle was withdrawn and sterile bandage was applied. Patient tolerated procedure well had no immediate complications Condition at Discharge: Condition at Discharge: Condition at discharge is stable, patient Jennifer the procedure well and had no complications. RNAJANA FUENTES MD May 05, 2021 13:49
== END | disposition home or self-care (01) ==
LOC: PNCL 12:59
PROVIDERS: ATTEND Anesthesiology
DX: M51.16 Intervertebral disc disorders with radiculopathy, lumbar region (principal); I10 Essential (primary) hypertension; E78.00 Pure hypercholesterolemia, unspecified; E11.9 Type 2 diabetes mellitus without complications; E66.9 Obesity, unspecified; F41.9 Anxiety disorder, unspecified; Z90.710 Acquired absence of both cervix and uterus; Z98.890 Other specified postprocedural states; Z79.899 Other long term (current) drug therapy; Z87.891 Personal history of nicotine dependence
CPT/HCPCS: 64483; J1040; J3490; Q9965; 64493

== ENCOUNTER → 2021-05-19 | Outpatient (CLI) | payer OTHER ==
[~2021-05-19] MED LIST changes: -BUPIVACAINE MPF 0.25% 10 ML VIAL. ONE; -IOHEXOL 180 MG/ML 10 ML VIAL. ONE; -methylPREDNISolone ACETATE 80 MG/ML VIAL. ONE
--- NOTE | 2021-05-19 13:53 | PDOC ---
Progress Note - Pain Clinic Date of Service: DOS: DATE: 05/19/21 TIME: 13:48 Diagnosis: Dx: Lumbar radiculopathy with lumbar degenerative disc disease History or Present Illness: HPI: 66-year-old female returns for follow-up status post right lumbar transforaminal injection at the L4-5 level. Patient reports she did very well with about 75 to 80% improvement for the first few days and then decrease to about 50% improvement and is still about 50% patient reports she can increase her activity distance walking with much greater ease and comfort still with pain in the right leg which is increasing and across the low back on the right side mostly patient reports 2 on scale 10 is worst average and least is a 2 today but reports that it daily it is becoming more noticeable and is coming worse with standing walking and changing positions patient reports that sharp on and off in intensity radiating in the anterior thigh anteromedial thigh medial knee and medial lower leg but not to the foot. Patient reports no bowel or bladder inco ntinence no loss of motor function. Patient reports increase activity distance walking doing household activities work activities travel with greater ease and comfort and sleeping better does not awaken her from sleep at this time. Patient reports he is able to work much more easily and is standing for much longer periods of time also has decreased the amount of [id number] analgesics that she was taking and is only taking 1 maybe every other day now with Advil or Tylenol. Patient continues to do some stretching strengthening exercises on her own which she feels are helpful and I encouraged her to continue with this as well. Physical Exam: VS: Blood pressure is 120/84 pulse 81 respirations 18 temperature is 98.9 F height is 5 foot 3 inches weight is 144 pounds PE: PHYSICAL EXAMINATION: GENERAL: The patient is awake, alert, oriented, appropriate, very pleasant in demeanor HEENT: Shows normocephalic, atraumatic. Extraocular movements are intact and symmetrical. Patient wearing eyeglasses. Oral cavity: Mucous membranes moist and pink. Dentition is intact. NECK: Shows anterior throat supple without palpable lymphadenopathy noted. Swallow reflex symmetrical. CHEST: Shows normal on inspection. Breath sounds are clear bilaterally, no rales or rhonchi. HEART: Shows S1, S2 clear. No murmurs auscultated. ABDOMEN: Soft, nontender, nondistended. No palpable organomegaly is noted. BACK: Shows spine grossly in the midline. Normal-appearing cervical lordotic curvature. There is some increased thoracic kyphosis, some minor flattening of the lumbar lordotic curvature. Lumbar paraspinous muscles show symmetrical on inspection, on palpation shows some moderate tenderness diffusely throughout the upper, middle and lower distribution of the paraspinous muscles without specific trigger points, without radiation of pain. The patient has good rotational motion of the lumbar spine, both laterally as well as extension and flexion without significant difficulty. No tenderness over the spinous processes, sacrum or sacroiliac regions. EXTREMITIES: Lower extremities show deep tendon reflexes 1+ in the patellar and tendo calcaneus tendons. Motor exam is 4 on a scale of 5 with right dorsiflexion, extension, quadriceps and hamstring flexion and 5/5 on the left. Peripheral pulses are 1+ posterior tibial. No peripheral edema is noted bilater ally. Lower extremities are warm and dry to touch, equal in color and appearance. Straight leg raise noted to be mildly positive on the right at about 45 degrees but decreased with knee flexion, left side is negative. SKIN: Shows warm and dry, good turgor. No edema. No sores, rashes or bruising throughout. Procedure: Procedure: 5 dermatomal distributional on the left sideOptions were discussed with the patient. Patient's old chart was reviewed as her current medication regimen updated current review of systems updated today as well. We will preauthorize patient for a second lumbar transforaminal injection left L4-5 level as she still has persistent left L4-5 radiculopathy. Also will call in prescription for Medrol Dosepak patient was given instructions as well as side effects beware with the medication. Patient continue with stretching and strength exercises as well as oral analgesics as currently. Once approved, patient will return for transforaminal approach right L4 5 injection with fluoroscopic guidance Medication Injected: Med Injected: None Condition at Discharge: Condition at Discharge: Condition at discharge stable. RANJANA FUENTES MD May 19, 2021 13:53
--- NOTE | 2021-05-19 16:31 | FMN ---
PT PROBLEMS Clarification from earlier dictation regarding plan of care for patient. Statement should read right lumbar transforaminal L4-5 not left RANJANA FUENTES MD May 19, 2021 16:31
== END | disposition home or self-care (01) ==
LOC: PNCL 13:11
PROVIDERS: ATTEND Anesthesiology
DX: M51.16 Intervertebral disc disorders with radiculopathy, lumbar region (principal); I10 Essential (primary) hypertension; E78.00 Pure hypercholesterolemia, unspecified; E11.9 Type 2 diabetes mellitus without complications; E66.9 Obesity, unspecified; F41.9 Anxiety disorder, unspecified; Z90.710 Acquired absence of both cervix and uterus; Z98.890 Other specified postprocedural states; Z79.899 Other long term (current) drug therapy; Z87.891 Personal history of nicotine dependence; Z88.8 Allergy status to other drugs, medicaments and biological substances
CPT/HCPCS: 99212; G0463

== ENCOUNTER → 2021-07-07 | Outpatient (CLI) | payer OTHER ==
[~2021-07-07] MED LIST changes: +BUPIVACAINE MPF 0.25% 10 ML VIAL. ONE; +BUPR100T8 PO; +DEXAMETHASONE PRES.FREE 10 MG/ML VIAL. ONE
--- NOTE | 2021-07-07 14:34 | PDOC ---
Progress Note - Pain Clinic Date of Service: DOS: DATE: 07/07/21 TIME: 14:29 Diagnosis: Dx: Lumbar radiculopathy with lumbar degenerative disc disease History or Present Illness: HPI: 66-year-old female returns last seen May 05, 2021 patient had done very well after transforaminal injection on the right L4-5 with approximately 60% improvement still patient reports for 2 to 3 weeks it was almost 100% provement now is about 60% overall with pain in the right lower extremity patient reports also she has pain in the low back more on the left side than the right now which is new for her she is normally had it only on the right side patient reports it goes into the posterior gluteus slightly on the left side but the right side is down the entire leg posterior thigh lateral thigh anterior thigh medial thigh medial lower leg and calf posteriorly and anteriorly as well as into the ankle and some of the top of the foot on the right side patient report is worse with walking standing initially to do much better distance walking doing household activities try with greater ease and comfort as well is sleeping better but it still does not generally awaken her from sleep at night unless she lays on her right side. Patient reports pain is 8 on scale 10 is worst 8 on average a 6 at its least and is an 8 today[address] drives aching sharp shooting in the right lower extremity mildly shooting in the left lower extremity posteriorly on and off in intensity again worse with walking standing better with sitting or laying down. Patient reports no bowel or bladder incontinence. Physical Exam: VS: Blood pressure is 110/64 pulse 80 respirations 18 temperature 98.1 F weight is 140 pounds. PE: PHYSICAL EXAMINATION: GENERAL: The patient is awake, alert, oriented, appropriate, very pleasant in demeanor HEENT: Shows normocephalic, atraumatic. Extraocular movements are intact and symmetrical. Oral cavity: Mucous membranes moist and pink. Dentition is intact. NECK: Shows anterior throat supple without palpable lymphadenopathy noted. Swallow reflex symmetrical. CHEST: Shows normal on inspection. Breath sounds are clear bilaterally, no rales or rhonchi. HEART: Shows S1, S2 clear. No murmurs auscultated. ABDOMEN: Soft, nontender, nondistended. No palpable organomegaly is noted. BACK: Shows spine grossly in the midline. Normal-appearing cervical lordotic curvature. There is mildly increased thoracic kyphosis, some mild flattening of the lumbar lordotic curvature. Lumbar paraspinous muscles show symmetrical on inspection, on palpation shows some moderate tenderness diffusely throughout the upper, middle and lower distribution of the paraspinous muscles, but without specific trigger points, without radiation of pain. The patient has good rotational motion of the lumbar spine, both laterally as well as extension and flexion without significant difficulty. EXTREMITIES: Lower extremities show deep tendon reflexes 1 in the patellar and tendo calcaneus tendons. Motor exam is 4 on a scale of 5 with right dorsiflexion, extension, quadriceps and hamstring flexion and 5/5 on the left. Peripheral pulses are 1 posterior tibial. No peripheral edema is noted bilaterally. Lower extremities are warm and dry. SKIN: Shows warm and dry, good turgor. No edema. No sores, rashes or bruising throughout. Procedure: Procedure: Options were discussed with the patient. Patient's old chart was reviewed as her current medication regimen updated current review of systems updated today as well. We will proceed with a right L4-5 transforaminal injection today with fluoroscopic guidance. Risks were discussed including but not limited to: Bleeding, infection, possibility of epidural hematoma and subsequent neurological compromise, dural puncture, headaches, spinal cord and/or nerve damage, potential injection of vertebral arteries at level and permanent ischemic damage, side effects of steroid medication, and poor results regarding pain control. Patient understands and wished to proceed. Patient will return to the clinic in approximately 2 weeks for follow-up, was counseled as to return appointment, activity level, and side effect to be aware of. Medication Injected: Med Injected: Under sterile prep and drape patient was placed in prone position using C-arm fluoroscopic guidance to identify the L4-5 distribution oblique and slightly cephalad angled C arm. The right L4-5 target was identified and using lidocaine for anesthetizing the skin 22-gauge Kareem pencil point needle was then used to enter the skin and into the subcutaneous tissues using direct C-arm fluoroscopic guidance to guide the needle into the transforaminal aspect of the right L4-5 vertebrae this was confirmed with lateral views showing the needle tip in the superior aspect of the paravertebral region. Aspiration was noted to be negative, 1.5 cc of contrast was then injected with good spread both medially into the epidural space as well as laterally along the nerve root without uptake and without distribution and uptake on digital subtraction. At this time, a solution containing 2 cc of 0.25% bupivacaine and 10 mg dexamethasone was then injected. Needle was withdrawn and sterile bandage was applied. Patient tolerated procedure well had no immediate complications Condition at Discharge: Condition at Discharge: Condition at discharge stable, patient tolerated the procedure well and had no complications. RANJANA FUENTES MD Jul 07, 2021 14:34
== END | disposition home or self-care (01) ==
LOC: PNCL 13:22
PROVIDERS: ATTEND Anesthesiology
DX: M51.16 Intervertebral disc disorders with radiculopathy, lumbar region (principal); I10 Essential (primary) hypertension; E78.00 Pure hypercholesterolemia, unspecified; E66.9 Obesity, unspecified; E11.9 Type 2 diabetes mellitus without complications; F41.9 Anxiety disorder, unspecified; Z90.710 Acquired absence of both cervix and uterus; Z98.890 Other specified postprocedural states; Z87.891 Personal history of nicotine dependence; Z79.899 Other long term (current) drug therapy
CPT/HCPCS: 64483; J1100; J3490